=== PATIENT | male | born 1975 | race Two or more races ===

== ENCOUNTER 2018-01-25 15:13 | Inpatient (IN) | payer SELFPAY ==
[2018-01-25 15:59] LABS: ADD MAN DIFF? NO
[2018-01-25 16:06] LABS: BASO # 0.1 x10^3/uL (0.0-0.2); BASO % 1 % (0-3); EOS # 0.1 x10^3/uL (0.0-0.7); EOS % 2 % (0-3); HEMATOCRIT 45.8 % (39.0-53.0); HEMOGLOBIN 15.6 g/dL (13.0-17.5); LYMPH # 2.1 x10^3/uL (1.0-4.8); LYMPH % 31 % (24-48); MEAN CORPUSCULAR HEMOGLOBIN 31 pg (25-35); MEAN CORPUSCULAR HGB CONC 34 g/dL (31-37); MEAN CORPUSCULAR VOLUME 90 fL (79-100); MONO # 0.5 x10^3/uL (0.0-1.1); MONO % 8 % (0-9); NEUT # 3.9 x10^3uL (1.8-7.7); NEUT % 58 % (31-73); PLATELET COUNT 176 x10^3/uL (140-400); RED BLOOD COUNT 5.08 x10^6/uL (4.30-5.70); RED CELL DISTRIBUTION WIDTH 12.9 % (11.5-14.5); WHITE BLOOD COUNT 6.7 x10^3/uL (4.0-11.0)
[2018-01-25 16:15] LABS: ANION GAP 7 (6-14); BLOOD UREA NITROGEN 12 mg/dL (8-26); CALCIUM 9.1 mg/dL (8.5-10.1); CARBON DIOXIDE 30 mmol/L (21-32); CHLORIDE 105 mmol/L (98-107); CREATININE 1.1 mg/dL (0.7-1.3); GFR 72.7; GLUCOSE 101 mg/dL (70-99); INR 1.1 (0.8-1.1); PARTIAL THROMBOPLASTIN TIME 31 SEC (24-38); POTASSIUM 4.4 mmol/L (3.5-5.1); PROTHROMBIN TIME PATIENT 13.3 SEC (11.7-14.0); SODIUM 142 mmol/L (136-145)
[2018-01-25 16:22] LABS: ALBUMIN 3.8 g/dL (3.4-5.0); ALK PHOS 49 U/L (46-116); ALT (SGPT) 44 U/L (16-63); AST (SGOT) 22 U/L (15-37); LIPASE 189 U/L (73-393); TOTAL BILIRUBIN 0.4 mg/dL (0.2-1.0); TOTAL PROTEIN 7.8 g/dL (6.4-8.2)
[2018-01-25 16:23] LABS: DIRECT BILIRUBIN < 0.1 mg/dL (0.0-0.2)
[2018-01-25 16:23] LABS: TROPONINI < 0.017 ng/mL (0.000-0.055)
[2018-01-25 16:27] LABS: NT-PRO BNP 12 pg/mL (0-124)
[2018-01-25] MEDS ORDERED: ONDANSETRON PF 4 MG/2 ML VIAL. IV ×2 (16:45→18:00)
[2018-01-25] MEDS ORDERED: MORPHINE SULFATE 2 MG/ML DISP.SYRIN. IV (16:45)
[2018-01-25] MEDS ORDERED: NITROGLYCERIN SUBLINGUAL 0.4 MG BOTTLE OF 25. SL (16:45)
[2018-01-25] MEDS ORDERED: ACETAMINOPHEN 325 MG TABLET. PO (18:00)
[2018-01-25] MEDS ORDERED: hydrALAZINE 20 MG/ML VIAL. IVP (18:00)
[2018-01-25] MEDS ORDERED: MORPHINE SULFATE 4 MG/ML DISP.SYRIN. IV (18:00)
[2018-01-25] MEDS ORDERED: traMADol 50 MG TABLET PO (18:00)
[2018-01-25] MEDS ORDERED: DOCUSATE SODIUM 100 MG CAPSULE. PO (18:00)
[2018-01-25] MEDS: PANTOPRAZOLE 40 MG TABLET.DR. PO (19:01)
[2018-01-25] MEDS: ENOXAPARIN 40 MG/0.4 ML SYRINGE. SQ (19:01)
[2018-01-25] MEDS: ASPIRIN 325 MG TABLET PO (19:01)
[2018-01-25 20:06] LABS: TROPONINI < 0.017 ng/mL (0.000-0.055)
[2018-01-25] MEDS: IV NORMAL SALINE 1000ML BAG 1,000 ML IV (20:52)
[2018-01-25 23:07] LABS: TROPONINI < 0.017 ng/mL (0.000-0.055)
[2018-01-26 04:57] LABS: ADD MAN DIFF? NO
[2018-01-26 05:07] LABS: BASO % 0 % (0-3); EOS # 0.2 x10^3/uL (0.0-0.7); EOS % 2 % (0-3); HEMATOCRIT 44.9 % (39.0-53.0); HEMOGLOBIN 15.4 g/dL (13.0-17.5); LYMPH # 3.5 x10^3/uL (1.0-4.8); LYMPH % 41 % (24-48); MEAN CORPUSCULAR HEMOGLOBIN 31 pg (25-35); MEAN CORPUSCULAR HGB CONC 34 g/dL (31-37); MEAN CORPUSCULAR VOLUME 90 fL (79-100); MONO # 0.7 x10^3/uL (0.0-1.1); MONO % 8 % (0-9); NEUT # 4.2 x10^3uL (1.8-7.7); NEUT % 49 % (31-73); PLATELET COUNT 170 x10^3/uL (140-400); RED BLOOD COUNT 4.98 x10^6/uL (4.30-5.70); RED CELL DISTRIBUTION WIDTH 13.1 % (11.5-14.5); WHITE BLOOD COUNT 8.6 x10^3/uL (4.0-11.0)
[2018-01-26 05:27] LABS: CHOLESTEROL 257 mg/dL (0-200); HDLC 32 mg/dL (40-60); LDLC 175 mg/dL (0-100); NON-HDL CHOLESTEROL 225 mg/dL (0-129); TRIGLYCERIDES 251 mg/dL (0-150); VLDLC 50 mg/dL (0-40)
[2018-01-26 05:28] LABS: ANION GAP 6 (6-14); BLOOD UREA NITROGEN 11 mg/dL (8-26); CALCIUM 9.2 mg/dL (8.5-10.1); CARBON DIOXIDE 33 mmol/L (21-32); CHLORIDE 105 mmol/L (98-107); CREATININE 1.2 mg/dL (0.7-1.3); GFR 65.8; GLUCOSE 86 mg/dL (70-99); SODIUM 144 mmol/L (136-145)
[2018-01-26] MEDS: IV NORMAL SALINE 1000ML BAG 1,000 ML IV ×2 (05:47→12:41)
[2018-01-26] MEDS: PANTOPRAZOLE 40 MG TABLET.DR. PO (08:49)
[2018-01-26] MEDS: LIDO:MAALOX:DONNATAL 1:1:1 15 ML SINGLE DOSE SWSW (17:32)
[2018-01-26] MEDS: ENOXAPARIN 40 MG/0.4 ML SYRINGE. SQ (18:00)
[2018-01-26] MEDS ORDERED: ATORVASTATIN CALCIUM 40 MG TABLET. PO (21:00)
[2018-01-27] MEDS ORDERED: PANTOPRAZOLE 40 MG TABLET.DR. PO (07:30)
== END 2018-01-26 18:27 | disposition home or self-care (01) | DRG 313 ==
LOC: ER 15:13 → ED HOLD 16:50 → 5 NORTH 19:56
DX: R07.89 Other chest pain (principal); E78.5 Hyperlipidemia, unspecified; F17.210 Nicotine dependence, cigarettes, uncomplicated; Z82.49 Family history of ischemic heart disease and other diseases of the circulatory system
CPT/HCPCS: 36415; 71045; 80048; 80061; 80076; 83690; 83880; 84443; 84484; 85025; 85610; 85730; 93005; 93017; 93350; 96372; 99285; 99285-25; 99406; J1650; J7030